=== PATIENT | male | born 1980 | race Caucasian/White ===

== ENCOUNTER 2017-03-12 19:57 | Emergency (ER) | payer MEDICAID ==
[~2017-03-12] VITALS: Ht 170.2 cm; Wt 80.3 kg
[2017-03-12 20:05] VITALS: BP_SYST 119
--- NOTE | 2017-03-12 20:09 | NUR ---
Patient triaged and placed in waiting room. VSS and patient appears in no acute distress at this time. Accompanied by BROTHER, awaiting available bed, and MD notified of need for MSE.
--- NOTE | 2017-03-12 21:40 | NUR ---
Patient to ER bed 4 to gown for evaluation. Side rails up. Report given to Lily BABCOCK.
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
--- NOTE | 2017-03-12 21:54 | NUR ---
ER TOM Macdonald at bedside examining patient.
[2017-03-12] MEDS ORDERED: KETOROLAC TROMETHAMINE 60 MG/2 ML VIAL IM ONE (22:00)
[2017-03-12] MEDS ORDERED: HYDROcodone/ACETAMIN 5-325 MG TAB (NORCO/ VICODIN) PO ONE (22:15)
[2017-03-12 22:50] VITALS: BP_SYST 117
--- NOTE | 2017-03-12 22:50 | NUR ---
Patient given written and verbal discharge instructions and verbalizes understanding. ER MD discussed with patient the results and treatment provided. Patient in stable condition. ID arm band removed. Rx of flexeril, Motrin 800 mg, tramadol hcl given. Patient educated on pain management and to follow up with PMD. Pain Scale 2/10. Opportunity for questions provided and answered.
== END 2017-03-12 22:50 | disposition home or self-care (01) ==
LOC: SED 19:57
DX: S39.012A Strain of muscle, fascia and tendon of lower back, initial encounter (principal); V89.2XXA Person injured in unspecified motor-vehicle accident, traffic, initial encounter; Y93.89 Activity, other specified; Y92.89 Other specified places as the place of occurrence of the external cause; Y99.8 Other external cause status
CPT/HCPCS: 99283